=== PATIENT | female | born 1945 | race Caucasian/White ===

== ENCOUNTER 2018-12-29 15:35 | Emergency (ER) | payer MEDICARE, OTHER ==
[~2018-12-29] VITALS: Ht 142.2 cm; Wt 65.9 kg
[2018-12-29 16:22] LABS: BASO # 0.1 10^3/uL (0.0-0.2); BASO % 0.4 % (0.0-1.0); EOS # 0.1 10^3/uL (0.0-0.50); HEMATOCRIT 36.5 % (36.0-47.0); HEMOGLOBIN 12.7 g/dl (12.0-15.5); LYMPH % 13.7 % (24.0-44.0); MEAN CORPUSCULAR HEMOGLOBIN 30.8 pg (27.0-33.0); MEAN CORPUSCULAR HGB CONC 34.8 g/dl (32.0-36.5); MEAN CORPUSCULAR VOLUME 88.4 fl (80.0-96.0); MONO % 6.9 % (0.0-5.0); NEUTROPHILS # 11.1 10^3/uL (1.8-7.7); NEUTROPHILS % 77.6 % (36.0-66.0); PLATELET COUNT, AUTOMATED 323 10^3/uL (150-450); RED BLOOD COUNT 4.13 10^6/uL (4.00-5.40); WHITE BLOOD COUNT 14.2 10^3/uL (4.0-10.0)
[2018-12-29] MEDS ORDERED: MAGN250T9 PO (16:23)
[2018-12-29] MEDS ORDERED: HYDR12.55 PO (16:23)
[2018-12-29] MEDS ORDERED: ASPI81CH PO (16:23)
[2018-12-29] MEDS ORDERED: PROB250C PO (16:23)
[2018-12-29] MEDS ORDERED: [UNRECOGNIZED DRUG - CODE] PO (16:23)
[2018-12-29] MEDS ORDERED: MULTCAP PO (16:23)
[2018-12-29] MEDS ORDERED: LISI2.5T5 PO (16:23)
[2018-12-29] MEDS ORDERED: NEXI10GR PO (16:23)
[2018-12-29 16:49] LABS: BLOOD UREA NITROGEN 19 MG/DL (7-18); CARBON DIOXIDE LEVEL 28 MEQ/L (21-32); CHLORIDE LEVEL 98 MEQ/L (98-107); CREATININE FOR GFR 0.71 MG/DL (0.55-1.30); GLOMERULAR FILTRATION RATE > 60.0 (>39); GLUCOSE, FASTING 112 MG/DL (70-100); POTASSIUM SERUM 3.7 MEQ/L (3.5-5.1); SODIUM LEVEL 133 MEQ/L (136-145)
[2018-12-29 17:09] LABS: CK-MB VALUE MASS < 1.0 NG/ML (<3.6); CPK CREATINE PHOSPHOKINASE 63 U/L (26-192); MB/CK RELATIVE INDEX 1.59 (< OR =4); TROPONIN I 0.04 NG/ML (< 0.10)
[2018-12-29] MEDS ORDERED: NS 1,000 ML IV SCH (17:36)
--- NOTE | 2018-12-29 17:49 | REP ---
PA AND LATERAL CHEST: 12/29/2018. Clinical history: Syncope. Findings: No prior study. Two-views show the lungs well inflated. There is some minor basilar fibrotic changes without effusion or definite infiltrate. There is no gross cardiomegaly, vascular redistribution or pulmonary edema. The aorta is calcified at the arch, minimally tortuous, but without aneurysm. Airway intact. There are diffuse degenerative changes in the spine without compression deformity or destructive lesion. No free air under the diaphragm. Right upper quadrant surgical clips noted. Impression: 1. Some basilar fibrosis without infiltrate, effusion, cardiomegaly, edema, atelectasis or mass. 2. Degenerative changes in the spine. No compression fracture. Electronically Signed by Gildardo Alvarado MD 12/29/2018 09:28 P
[2018-12-29 17:59] LABS: ALBUMIN 3.6 GM/DL (3.2-5.2); ALT/SGPT 21 U/L (12-78); BILIRUBIN,DIRECT < 0.1 MG/DL (0.0-0.2); BILIRUBIN,TOTAL 0.3 MG/DL (0.2-1.0); LIPASE 149 U/L (73-393); TOTAL PROTEIN 6.7 GM/DL (6.4-8.2)
[2018-12-29] MEDS ORDERED: ISOVUE-370 76% 100ML VIAL (Q9967) As Ordered ONE (18:25)
--- NOTE | 2018-12-29 19:25 | REPVR ---
EXAM: CT Abdomen and Pelvis With Contrast EXAM DATE/TIME: 12/29/2018 6:45 PM CLINICAL HISTORY: 73 years old, female; Pain; Abdominal pain; Additional info: Upper abd pain, syncope TECHNIQUE: Axial computed tomography images of the abdomen and pelvis with intravenous contrast. All CT scans at this facility use at least one of these dose optimization techniques: automated exposure control; mA and/or kV adjustment per patient size (includes targeted exams where dose is matched to clinical indication); or iterative reconstruction. Coronal and sagittal reformatted images were created and reviewed. CONTRAST: Contrast Material: 100 ml of iso 370; Contrast Route: iv COMPARISON: No relevant prior studies available. FINDINGS: Lower thorax: No suspicious mass or airspace process in the visualized lung bases. ABDOMEN: Liver: Liver appears normal with no focal abnormality. Gallbladder and bile ducts: Gallbladder is surgically absent. Pancreas: Pancreas appears normal. No focal mass or peripancreatic inflammation. Spleen: Spleen appears homogeneous without focal mass. Adrenals: Adrenal glands are normal in appearance. Kidneys and ureters: Kidneys appear normal, with no stone, solid mass or hydronephrosis. Stomach and bowel: Mild prominence of mid abdominal small bowel loops. No mass. Diverticular changes are present within the colon without inflammation. Appendix: Normal-appearing retrocecal appendix is identified, without inflammation. PELVIS: Bladder: Bladder appears normal. Reproductive: Uterus is surgically absent. ABDOMEN and PELVIS: Intraperitoneal space: No pneumoperitoneum. No abnormal pelvic mass. Bones/joints: Degenerative changes are seen in the lumbar spine with disc height loss, endplate osteophytes and hypertrophic facet arthropathy. Soft tissues: Unremarkable. Vasculature: Atherosclerotic change present in the aorta, without aneurysm. Main portal and splenic veins enhance normally. Lymph nodes: Normal. No enlarged lymph nodes. IMPRESSION: 1. Prominent midabdominal small bowel loops measuring up to 3.6 cm suggesting low grade or partial small bowel obstruction possibly from adhesions. No mesenteric edema or wall thickening to suggest ischemia. 2. Colonic diverticular changes without active inflammation Electronically signed by: Alfa Holcomb On 12/29/2018 19:25:25 PM
[2018-12-29 21:18] VITALS: BP 133/74
--- NOTE | 2018-12-30 08:02 | ECGEPIP ---
Stationary ECG Study [facility] - ED Test Date: 2018-12-29 Pat Name: EUGENIO SEGOVIA Department: Room: - Gender: F [employer] Operations [employer]: VIET : 1945 Requested By: MATIAS Baker Order Number: [id number] Reading MD: Darius Bryant Measurements Intervals [place] Rate: 61 P: 24 [place]: 152 QRS: -32 QRSD: 97 T: 4 QT: 412 QTc: 418 Interpretive Statements SINUS RHYTHM POSSIBLE LEFT ATRIAL ENLARGEMENT LEFT AXIS DEVIATION PATTERN CONSISTENT WITH PULMONARY DISEASE MINIMAL VOLTAGE CRITERIA FOR LVH, CONSIDER NORMAL VARIANT NSTTW ABNORMALITIES NO PRIORS FOR COMPARISON Electronically Signed On 12-30-2018 8:01:50 EST by Darius Bryant
--- NOTE | 2019-01-03 19:31 | ED PDOC ---
Post-Departure Follow-Up nadiya josue faxed formal report of ct abd/p for fu Kezia Nelson MD Jan 03, 2019 19:31
== END 2018-12-29 21:20 | disposition home or self-care (01) ==
LOC: M ED 15:35 → EDBD 15:35 → M ED 21:20
DX: K56.600 Partial intestinal obstruction, unspecified as to cause (principal); I10 Essential (primary) hypertension; K21.9 Gastro-esophageal reflux disease without esophagitis; Z88.1 Allergy status to other antibiotic agents; Z88.2 Allergy status to sulfonamides
CPT/HCPCS: 71046; 74177; 80048; 80076; 82550; 82553; 83690; 84443; 84484; 85025; 93005; 93041; 94760; 96360; 96361; 99285; Q9967